=== PATIENT | female | born 1985 | race Caucasian/White ===

== ENCOUNTER 2023-11-25 14:28 | Outpatient (CLI) | payer OTHER, SELFPAY ==
[2023-11-25 17:25] LABS: Chlamydia DNA Amplified* NOT DETECTED (No Detected); GC DNA Amplified* NOT DETECTED (No Detected)
== END 2023-11-25 14:29 | disposition home or self-care (01) ==
PROVIDERS: Visit Provider Physician Assistant
DX: Z20.2 Contact with and (suspected) exposure to infections with a predominantly sexual mode of transmission (principal); Z11.3 Encounter for screening for infections with a predominantly sexual mode of transmission
CPT/HCPCS: 86592; 86703; 86706; 86803; 87340; 87491; 87591